=== PATIENT | male | born 1990 | race Caucasian/White ===

== ENCOUNTER 2025-01-23 23:57 | Emergency (ER) | payer BC, OTHER ==
[2025-01-24] MEDS ORDERED: Sodium Chloride 0.9% 10 ML Syringe FLUSH PRN (00:13)
[2025-01-24] MEDS: Ondansetron 4 MG/2 ML SDV IVPUSH ONE (00:25)
[2025-01-24] MEDS: Ketorolac 30 MG/ML SDV IVPUSH ONE (00:25)
[2025-01-24 00:45] LABS: BASOPHILS PERCENT AUTO 1.0 % (0.0-1.0); EOSINOPHILS PERCENT AUTO 3.4 % (1.0-3.0); LYMPHOCYTES PERCENT AUTO 19.4 % (20.5-50.1); MONOCYTES PERCENT AUTO 7.5 % (2-8); NEUTROPHILS PERCENT AUTO 68.7 % (42.2-75.2); PLATELET COUNT,PLT 252 10^3/uL (150-450); RED BLOOD CELL COUNT 4.66 10^6/uL (4.6-6.2); WHITE BLOOD CELL COUNT,WBC 9.0 10^3/uL (5.0-10.0)
[2025-01-24 00:59] LABS: ALANINE AMINOTRANSFERASE,ALT 16 U/L (16-63); ASPARTATE AMNIOTRANSFERASE,AST 33 U/L (15-37); BILIRUBIN TOTAL 1.6 mg/dL (0.2-1.0); BLOOD UREA NITROGEN,BUN 8 mg/dL (7-18); CARBON DIOXIDE,CO2 24 mmol/L (21-32); CHLORIDE,CL 103 mmol/L (98-107); CREATININE 0.76 mg/dL (0.70-1.30); EST CRCL DRUG DOSING (CG) 157.73 mL/min; GLUCOSE RANDOM 109 mg/dL (70-99); POTASSIUM,K 3.4 mmol/L (3.5-5.1); PROTEIN TOTAL,TP 8.2 g/dL (6.4-8.2); SODIUM,NA 139 mmol/L (136-145)
[2025-01-24 01:14] LABS: A/G RATIO 0.52; ESTIMATED GFR 120 mL/min (>=60); ETHANOL BLOOD MEDICAL < 3 mg/dL (0)
== END 2025-01-24 01:55 | disposition home or self-care (01) ==
LOC: DL.ED 23:57
DX: K80.20 Calculus of gallbladder without cholecystitis without obstruction (principal); R79.89 Other specified abnormal findings of blood chemistry
CPT/HCPCS: 36415; 80053; 80307; 83605; 83690; 85025; 96361; 96374; 96375; 99284; J1885; J2405; J7030